=== PATIENT | male | born 2000 | race Caucasian/White ===

== ENCOUNTER 2023-12-09 15:07 | Outpatient (CLI) | payer BC, SELFPAY ==
[2023-12-09 19:21] LABS: Hematocrit 44.9 % (42.0-52.0); Hemoglobin 15.5 g/dL (14.0-18.0); Mean Corpuscular HGB Conc 34.5 g/dl (32-36); Mean Corpuscular Hemoglobin 30.1 pg (26-34); Mean Corpuscular Volume 87.2 fl (80-100); Mean Platelet Volume 9.6 fl (7.4-10.4); Platelet Count Result 350 k/mm3 (150-375); Red Blood Count 5.15 M/mm3 (4.6-6.20); Red Cell Distribution Width 11.3 % (11.5-14.5)
[2023-12-09 19:55] LABS: Alanine Aminotransferase 14 U/L (6-50); Alkaline Phosphatase 57 U/L (38-126); Anion Gap 16 mmol/L (4-12); Aspartate Amino Transferase 58 U/L (17-59); Bilirubin,Total 1.2 mg/dL (0.2-1.3); Blood Urea Nitrogen 9 mg/dL (9-20); Calcium 9.6 mg/dL (8.4-10.2); Carbon Dioxide 25 mmol/L (22-30); Chloride 97 mmol/L (98-107); Cholesterol 144 mg/dL (0-200); Estimated Glomerular Filt Rate > 60; Glucose 83 mg/dL (65-110); HDL Direct 35 mg/dL; Potassium 3.8 mmol/L (3.4-5.0); Sodium 138 mmol/L (137-145); Triglycerides 87 mg/dL (<150)
[2023-12-09 20:06] LABS: LDL Cholesterol Direct 80 mg/dL
[2023-12-09 20:20] LABS: Thyroid Stimulating Hormone 0.828 uIU/mL (0.465-4.680)
[2023-12-09 20:45] LABS: Free T4 Free Thyroxine 1.24 ng/mL (0.78-2.19)
[2023-12-13 12:29] LABS: Thyroid Peroxidase Antibodies <1 IU/mL (<9)
== END 2023-12-09 15:08 | disposition home or self-care (01) ==
PROVIDERS: PCP Nurse Practitioner Adult Health; Visit Provider Nurse Practitioner Adult Health
DX: Z13.9 Encounter for screening, unspecified (principal); I10 Essential (primary) hypertension
CPT/HCPCS: 36415; 80053; 80061; 84439; 84443; 85027; 86376